=== PATIENT | female | born 2005 | race Caucasian/White ===

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

== ENCOUNTER 2023-08-07 22:16 | Emergency (ER) | payer OTHER, SELFPAY ==
[2023-08-07 22:20] VITALS: BP 115/88; PULSE 53; RESP 16; TEMP 36.6; O2SAT 100
--- NOTE | 2023-08-07 22:57 | ED.GENADUL_ITS ---
Discharge Plan Disposition Patient Disposition: Home Condition: Good Discharge Details Clinical Impression: Weight loss, Encounter for medical assessment Primary Care Provider: Claudia Worley ED Provider: Campbell Livingston Home Meds and New Rx's Prescriptions: No Action hydroxyzine HCl 25 mg tablet 25 mg PO BID PRN (Reason: itching) Qty: 180 1RF Discharge Instructions Additional Instructions: As we discussed together I am concerned about your current weight status. Although there is no evidence of a life-threatening emergency tonight because of the weight loss, as we discussed together I am concerned for the long-term impacts of chronic nutritional deficiency. Please follow-up closely with your terrazzo layer helper at your scheduled appointment with the goals for open and honest discussion of your diet weight and status. Our counselors will contact you this week for follow-up. If you notice any worsening of your symptoms, or any new symptoms such as vomiting, diarrhea, fever, chills, shortness of breath, chest pain, numbness, weakness, or fainting , please return immediately to the emergency department for reevaluation. Please follow up with your primary care provider as soon as possible for reassessment and reevaluation. As always, it was a pleasure participating in your medical care today. Referrals: Claudia Worley, JERONIMO [Primary Care Provider] - Discharge Data Discharge Date/Time-TO BE ENTERED AT DEPARTURE: 08/07/23 23:00 HPI General Date/Time Provider Initiated Documentation: 08/07/23 22:17 . HPI Narrative: This is a 18-year-old with a past medical history of depression, OCD, eating disorder, anxiety, who presents today for medical assessment. Patient recently came home from college 3 days ago, at which time mother noticed that the patient had lost a significant amount of weight compared to when she had [place]. Patient states that she has lost about 20 to 30 pounds since February. Mother was concerned for nutritional deficits, and brought the patient in. Patient herself has no complaints, she appears very upset for being here, and does not want any care or intervention. She states that she has lost weight secondary to restriction of calories. She denies any purging or vomiting. She denies any laxative use. She denies any syncope. She denies hair changes, skin changes, or other complaints otherwise. She denies any IV or illicit drug use. She does admit to occasional alcohol use. She is a dance major in college. She states that she has not been feeling depressed, she denies any homicidal or suicidal ideations. Related Data Home Medications Medication Instructions Recorded Confirmed hydroxyzine HCl 25 mg tablet 25 mg PO BID PRN itching #180 tabs 06/10/23 08/07/23 Previous Rx's Medication Instructions Recorded hydroxyzine HCl 25 mg tablet 25 mg PO BID PRN itching #180 tabs 06/10/23 Allergies Allergy/AdvReac Type Severity Reaction Status Date / Time No Known Allergies Allergy Verified 08/07/23 22:26 General Stated Complaint: GenMedical PATRICK: 4 Review of Systems All systems reviewed & are unremarkable except as noted in HPI and below Exam Narrative Exam Narrative: 1.Const: Thin appearing 2.Eyes: PERRL, no conjunctival injection, and symmetrical lids. 3.ENT: Atraumatic external nose and ears. Moist MM. Neck: Symmetric, trachea midline, No thyromegaly. 4.CVS: +S1/S2, No murmurs or gallops. Peripheral pulses 2+ and equal in all extremities. Brisk capillary refill in all extremities. 5.RESP: Unlabored respiratory effort. Clear to auscultation bilaterally. No wheezes rales or rhonchi 6.GI: Soft, Nontender/Nondistended, No hepatosplenomegaly. No guarding or rebound. 7.MSK: Normocephalic/Atraumatic, Extremities w/o deformity or ttp No cyanosis or clubbing, Normal movement of all extremities 8.Skin: Warm, Dry. No rashes or lesions. Negative Haroon sign. 9.Neuro: electrical equipment tester II-XII grossly intact. Sensation grossly intact, no focal neurologic deficits. 10.Psych: (AAO) x3. Appropriate mood and affect Course Vital Signs Vital signs: Vital Signs Temperature 36.6 C 08/07/23 22:20 Pulse 53 L 08/07/23 22:20 Respiratory Rate 16 08/07/23 22:20 Blood Pressure 115/88 08/07/23 22:20 Pulse Oximetry 100 08/07/23 22:20 Temperature 36.6 C 08/07/23 22:20 Temperature Source Temporal Artery Scan 08/07/23 22:20 Pulse 53 L 08/07/23 22:20 Respiratory Rate 16 08/07/23 22:20 Respiratory Effort Normal 08/07/23 22:26 Blood Pressure 115/88 08/07/23 22:20 Pulse Oximetry 100 08/07/23 22:20 Pain Level 0 08/07/23 22:20 Medical Decision Making This is a 18-year-old with a past medical history of depression, OCD, eating di sorder, anxiety, who presents today for medical assessment. Patient recently came home from college 3 days ago, at which time mother noticed that the patient had lost a significant amount of weight compared to when she had been home previously at [place]. Patient states that she has lost about 20 to 30 pounds since February. Mother was concerned for nutritional deficits, and brought the patient in. Patient herself has no complaints, she appears very upset for being here, and does not want any care or intervention. She states that she has lost weight secondary to restriction of calories. She denies any purging or vomiting. She denies any laxative use. She denies any syncope. She denies hair changes, skin changes, or other complaints otherwise. She denies any IV or illicit drug use. She does admit to occasional alcohol use. She is a dance major in [employer] ( [employer] ). She states that she has not been feeling depressed, she denies any homicidal or suicidal ideations. Exam demonstrates a thin appearing female, negative Haroon sign on the knuckles. Hair is unremarkable with no signs of alopecia. Skin appears normal on review. No other abnormalities on exam. Patient denies any homicidal or suicidal ideations. Patient was interviewed independently of mother, mother was interviewed independently, all parties were brought back together and the case was discussed. Patient does not want any interventions, blood work, or medications. She is willing to talk with a counselor though, and so we have placed a referral for this. She does have a dietitian she regularly sees with a scheduled appointment next week, as well as a counselor. At this time patient's vital signs are stable, she shows no signs of severe nutritional deficiency or severe caloric deficiency, however I did spend a long time discussing with the patient that over time her continued caloric restriction can have notable long- term effects. Patient understands this. She is still quite upset about being at the ER at this time. Patient will be discharged home, however I did make it very clear that I am available to discuss her case at any time if she does change her thoughts on desire for evaluation of blood draw. She will follow-up with our counselors on an outpatient basis, and will follow-up with her primary care provider. I have extensively reviewed the treatment plan and discharge instructions with the patient and their family. I have addressed all patient concerns at this time. The patient and family was made aware of what symptoms to monitor for that would warrant a return to the emergency department. Discussed the plan with the patient and family, they demonstrate verbal understanding and agreement with our assessment and plan at this time. The documentation in this chart was dictated using [employer] dictation software. Please excuse any dictation errors. Quality:SDOH Health Related Social Needs: No Data to Display PFSH All Active Problems Encounter for medical assessment (Acute) Weight loss (Acute) Pain in right foot (Acute) Ingrown toenail of right foot (Acute) MDD (major depressive disorder), recurrent episode, moderate (Acute) Abnormal EKG (Chronic) had cardiology eval - no underlying cardiac condition suspected Eating disorder (Acute) Fatigue (Acute) Low body weight due to inadequate caloric intake (Acute) Generalized anxiety disorder (Acute) Social anxiety disorder (Acute) OCD (obsessive compulsive disorder) (Chronic) Anxiety (Chronic) Atopic dermatitis (Chronic) Medical History Presence of IUD Kyle[place] IUD placed 11/16/22 Irregular menstrual cycle Stress bladder incontinence, female Acne Scoliosis concern EBV positive mononucleosis syndrome Family History Maternal Aunt Lymphoma Maternal Uncle Lymphoma Maternal Grandfather Lymphoma Paternal Aunt Bipolar affective disorder Depression Other Heart disease Social History Smoking/Tobacco Use Status: Never Smoking risk assessment performed?: Yes Alcohol Intake: current Alcohol Intake frequency: holidays/special occasions only Counseling given: Yes Drug use: Occasionally Substance use type: marijuana Counseling given: No Details: Frankie Albarran- father- 04/08/60- [employer]- mother- 03/06/67- [facility] Director Adopted: No Foster care: No Household members: family Housing: house Number of Children: 0 Communication Needs: None Education Level: college Details: [employer] freshman Do you need help understanding health information?: Never Pets and animals: Yes Pets and animals: cat(s) and dog(s) Sexually active: No Do you think of yourself as: straight/heterosexual Current gender identity: female What is your relationship status?: never How often do you talk on the phone with friends or family?: three or more times per week How often do you get together with friends or relatives?: three or more times per week Do you belong to any clubs or organized social groups?: no Panel score (0-1 are the most socially isolated patients): 1 Duration: > 90 minutes/day Frequency: 5-6 times per week Mesha/Pentecostal: None Special mesha needs: No Seatbelt use: always Helmet use: Yes Drive intox or ride w/intox pharmacy delivery driver: No Do you feel safe at home: Yes Additional Social history: BW: 8lbs 13oz Female Reproductive History Menstrual Age of Menarche: 12 Duration of menses: 3-5 days control method: none History History 0 Para Hx # Term Pregnancies Multiple births Hx # Pregnancies Ectopic pregnancies AB induced Hx Number of Living Children AB spontaneous
--- NOTE | 2023-08-07 22:59 | NUR.NOTE ---
Pt placed on care management referral list to be seen by [facility] for anorexia, to be seen as soon as possible. Per ER Dr. Livingston
== END 2023-08-07 23:00 | disposition home or self-care (01) ==
PROVIDERS: Emergency Provider Student in an Organized Health Care Education/Training Program; PCP Nurse Practitioner
DX: R63.4 Abnormal weight loss (principal); F41.9 Anxiety disorder, unspecified; F32.A Depression, unspecified
CPT/HCPCS: 99283

== ENCOUNTER 2023-09-11 04:54 | Outpatient (CLI) | payer OTHER, SELFPAY ==
[2023-09-11 13:30] LABS: Abs Immature Grans 0.01 10^3/uL (0.0-0.06); Absolute Basophil Count 0.04 10^3/uL (0.0-0.2); Absolute Eosinophil Count 0.06 10^3/uL (0.0-0.7); Absolute Monocyte Count 0.25 10^3/uL (0.1-0.8); Absolute Neutrophil Count 2.06 10^3/uL (1.2-6.7); Basophils % 0.9 %; Eosinophils % 1.4 %; HCT 38.7 % (36.0-46.0); HGB 12.9 g/dL (11.2-15.7); Immature Grans % 0.2 %; Lymphocytes % 42.7 %; MCH 30.9 pg (27.0-33.0); MCHC 33.3 % (32.0-36.0); MCV 93 fL (80-95); MPV 9.4 fL (8.0-11.0); Monocytes % 5.9 %; Neutrophils % 48.9 %; Platelet Count 247 10^3/uL (130-400); RBC 4.18 10^6/uL (3.93-5.22); RDW 13.2 % (11.7-14.6); RDW-SD 45.1 fL; WBC 4.22 10^3/uL (4.4-10.8)
[2023-09-11 13:35] LABS: Bilirubin Negative (Negative); Blood Negative (Negative); Clarity Clear (Clear); Glucose Negative (Negative); Ketones Negative (Negative); Leukocyte Esterase Negative (Negative); Nitrite Negative (Negative); Specific Gravity 1.015 (1.005-1.025); Urobilinogen 0.2 mg/dL (Up to 0.2); pH 6.5 (5-8)
[2023-09-11 13:54] LABS: *AMPHETAMINES SCREEN URINE Negative (Negative); *BARBITURATES SCREEN URINE Negative (Negative); *BENZODIAZEPINES SCREEN URINE Negative (Negative); Cannabinoids THC Negative (Negative); Cocaine Screen,Urine Negative (Negative); METHADONE URINE SCREEN Negative (Negative); OPIATES URINE SCREEN Negative (Negative)
[2023-09-11 13:55] LABS: Tricyclic Antidepressants Negative (Negative)
[2023-09-11 14:14] LABS: ALT 33 U/L (14-59); AST 19 U/L (15-37); Albumin 4.7 g/dL (3.4-5.0); Alkaline Phosphatase 39 U/L (46-116); Amylase 92 U/L (25-115); Anion Gap 8.1 mmol/L (3-11); BUN 13 mg/dL (7-18); Bilirubin, Total 0.46 mg/dL (0.2-1.0); CO2 29.9 mmol/L (21.0-32.0); CREATININE 0.6 mg/dL (0.55-1.02); Calcium 9.4 mg/dL (8.5-10.1); Chloride 105 mmol/L (98-107); Ferritin 77 ng/mL (8-252); Glucose 59 mg/dL (74-106); Lipase 49 U/L (16-77); Magnesium 2.1 mg/dL (1.8-2.4); PHOSPHORUS 3.7 mg/dL (2.6-4.7); Potassium 3.9 mmol/L (3.5-5.1); Sodium 143 mmol/L (136-145); TSH (W/Ref FT4) 1.38 uIU/mL (0.36-3.74); Total Protein 7.7 g/dL (6.4-8.2)
[2023-09-11 15:06] LABS: Vitamin B12 1049 pg/mL (193-986); Vitamin D 25 Total 27.9 ng/mL (30-100)
[2023-09-13 10:59] LABS: Zinc, S 80 mcg/dL (60-106)
== END 2023-09-11 04:55 | disposition home or self-care (01) ==
PROVIDERS: PCP Nurse Practitioner; Visit Provider Psychiatry & Neurology Psychiatry
DX: F50.01 Anorexia nervosa, restricting type (principal)
CPT/HCPCS: 36415; 80053; 80307; 82306; 83690; 84630; 81003; 82150; 82607; 82728; 83735; 84100; 84443; 85025